=== PATIENT | male | born 1960 | race Caucasian/White ===

== ENCOUNTER 2016-11-24 10:19 | Emergency (ER) | payer OTHER ==
[~2016-11-24] VITALS: Ht 177.8 cm; Wt 104.5 kg
[2016-11-24] MEDS ORDERED: TORADOL PO (12:08)
[2016-11-24 13:02] VITALS: BP 134/72
== END 2016-11-24 13:01 | disposition home or self-care (01) | DRG 605 ==
LOC: ED 10:19
DX: S80.11XA Contusion of right lower leg, initial encounter (principal); S80.01XA Contusion of right knee, initial encounter; M25.561 Pain in right knee; M79.604 Pain in right leg; V20.0XXA Motorcycle driver injured in collision with pedestrian or animal in nontraffic accident, initial encounter; Y92.411 Interstate highway as the place of occurrence of the external cause